=== PATIENT | male | born 1970 | race Caucasian/White ===

== ENCOUNTER 2018-09-27 18:27 | Emergency (ER) | END 2018-09-27 20:01 | disposition left against medical advice (07) ==

== ENCOUNTER 2018-10-25 10:13 | Emergency (ER) | payer MEDICAID ==
[~2018-10-25] VITALS: Wt 115.5 kg
[2018-10-25] MEDS ORDERED: HYDR25TA6 PO (12:42)
[2018-10-25] MEDS ORDERED: BENA20TA65 PO (12:42)
[2018-10-25 12:47] VITALS: BP 154/92; PULSE 72; RESP 18
--- NOTE | 2018-10-25 12:48 | ERD ---
ER Documentation Chief Complaint Chief Complaint stella leg swelling HPI 48-year-old male presents with sensation of swelling in the bilateral lower extremities. He is started after sleeping in his car. Denies any chest pain, shortness of breath patient denies any history of hypertension although pressure elevated at triage. Denies any regular primary care. ROS All systems reviewed and are negative except as per history of present illness. Medications Home Meds Active Scripts Hydrochlorothiazide* (Hydrochlorothiazide*) 25 Mg Tab, 25 MG PO DAILY, #30 TAB Prov:CHRISTIANO CHRISTIE MD 10/25/18 Benazepril Hcl* (Lotensin*) 20 Mg Tablet, 20 MG PO DAILY, #30 TAB Prov:CHRISTIANO CHRISTIE MD 10/25/18 Allergies Allergies: Coded Allergies: No Known Allergy (Unverified , 10/25/18) PMhx/Soc Medical and Surgical Hx: pt denies Medical Hx History of Surgery: Yes (right eye sx) Hx Substance Use: No Hx Tobacco Use: Yes (sometimes) Smoking Status: Current some day smoker FmHx Family History: No diabetes, No coronary disease, No other Physical Exam Vitals Vital Signs Date Temp Pulse Resp B/P (MAP) Pulse Ox O2 O2 Flow FiO2 Time Delivery Rate 10/25/18 97.7 78 20 173/102 98 10:16 (125) Physical Exam Const: No acute distress Head: Atraumatic Eyes: Normal Conjunctiva ENT: Normal External Ears, Nose and Mouth. Neck: Full range of motion. No meningismus. No JVD. Resp: Clear to auscultation bilaterally Cardio: Regular rate and rhythm, no murmurs Abd: Soft, non tender, non distended. Normal bowel sounds Skin: No petechiae or rashes Back: No midline or flank tenderness Ext: No cyanosis, possible trace edema in the ankles nonpitting. No erythema, warmth. No calf swelling or Homans sign. Neur: Awake and alert Psych: Normal Mood and Affect Result Diagram: 10/25/18 1055 10/25/18 1055 Results 24 hrs Laboratory Tests Test 10/25/18 10:55 White Blood Count 8.2 10^3/ul Red Blood Count 5.12 10^6/ul Hemoglobin 15.3 g/dl Hematocrit 45.1 % Mean Corpuscular Volume 88.1 fl Mean Corpuscular Hemoglobin 29.9 pg Mean Corpuscular Hemoglobin Concent 33.9 g/dl Red Cell Distribution Width 12.4 % Platelet Count 248 10^3/UL Mean Platelet Volume 9.6 fl Immature Granulocytes % 0.400 % Neutrophils % 55.2 % Lymphocytes % 29.1 % Monocytes % 8.6 % Eosinophils % 5.7 % Basophils % 1.0 % Nucleated Red Blood Cells % 0.0 /100WBC Immature Granulocytes # 0.030 10^3/ul Neutrophils # 4.5 10^3/ul Lymphocytes # 2.4 10^3/ul Monocytes # 0.7 10^3/ul Eosinophils # 0.5 10^3/ul Basophils # 0.1 10^3/ul Nucleated Red Blood Cells # 0.0 10^3/ul Urine Color YELLOW Urine Clarity CLEAR Urine pH 7.0 Urine Specific [place] 1.011 Urine Ketones NEGATIVE mg/dL Urine Nitrite NEGATIVE mg/dL Urine Bilirubin NEGATIVE mg/dL Urine Urobilinogen NEGATIVE mg/dL Urine Leukocyte Esterase NEGATIVE Yamil/ul Urine Hemoglobin NEGATIVE mg/dL Urine Glucose NEGATIVE mg/dL Urine Total Protein NEGATIVE mg/dl Sodium Level 142 mmol/L Potassium Level 4.2 mmol/L Chloride Level 101 mmol/L Carbon Dioxide Level 33 mmol/L Anion Gap 8 Blood Urea Nitrogen 12 mg/dl Creatinine 0.63 mg/dl Est Glomerular Filtrat Rate mL/min > 60 mL/min Glucose Level 99 mg/dl Calcium Level 8.9 mg/dl Total Bilirubin 0.6 mg/dl Direct Bilirubin 0.00 mg/dl Indirect Bilirubin 0.6 mg/dl Aspartate Amino Transf (AST/SGOT) 41 IU/L Alanine Aminotransferase (ALT/SGPT) 111 IU/L Alkaline Phosphatase 67 IU/L B-Type Natriuretic Peptide 23 PG/ML Total Protein 6.8 g/dl Albumin 4.2 g/dl Globulin 2.60 g/dl Albumin/Globulin Ratio 1.61 Procedures/MDM EKG: Rate/Rhythm: Normal Sinus Rhythm rate equals 76. QRS, ST, T-waves: No changes consistent w/ acute ischemia Impression: No evidence of ischemia or arrhythmia. Impression-borderline LVH. No acute findings otherwise on EKG. Chest X-ray 1V Interpreted by me: Soft Tissue: No acute abnormalities Bones: No acute abnormalities Mediastinum/Cardiac Silhouette/Lungs: No acute abnormalities impression-normal 1 view chest x-ray Cbs, CMP, BNP normal as well as urine. Patient presents with bilateral lower extremity swelling likely dependent edema. Current signs or symptoms to suggest CHF, DVT, cellulitis, ischemia, deficits. Initiate treatment for hypertension with Lotensin and hydrochlorothiazide and there is no signs or symptoms to suggest endorgan damage or hypertensive emergency. The patient was stable with no new complaints during the ER course. Clinically, there is no current evidence to suggest meningitis, sepsis, acute abdomen, pneumonia, stroke, acute coronary syndrome, pulmonary embolism, aortic dissection or any other emergent condition appearing to require further evaluation or hospitalization. Patient counseled regarding my diagnostic impression and care plan. Prior to discharge all questions answered. Pt agrees with treatment plan and understands strict return precautions. Pt is instructed to follow up with primary care provider within 24- 48 hours. Precautionary instructions provided including instructions to return to the ER if not improving or for any worsening or changing symptoms or concerns. Departure Diagnosis: Primary Impression: Hypertension Hypertension type: unspecified Qualified Codes: I10 - Essential (primary) hypertension Additional Impression: Swelling Condition: Stable Patient Instructions: High Blood Pressure (Hypertension), Peripheral Edema, Bilateral [facility] Usted se granados hecho un examen mdico de control que le indica que no est en melania condicin que requiera tratamiento urgente en el Departamento de Emergencia. Un estudio ms profundo y el tratamiento de hernandez condicin pueden esperar sin ningn riesgo hasta que usted sea atendida/o en el consultorio de hernandez mdico o melania c lnica. Es responsabilidad suya arreglar melania debbie para el seguimiento del rei. MANEJO DE CONDICIONES NO URGENTES EN EL FUTURO 1) Si usted tiene un mdico de atencin primaria: Usted debera llamar a hernandez mdico de atencin primaria antes de venir al departamento de emergencia. Despus de las horas de consultorio, hernandez doctor o hernandez asociado/a est disponible por telfono. El mdico o enfermero de jazzy en el servicio telefnico puede asesorarle por abhay medio para atender el problema, o rei contrario se puede programar melania debbie. 2) Si usted no tiene un mdico de atencin primaria: Llame al mdico o clnica de referencia que aparece abajo roberto las horas de consultorio para hacer melania debbie para que le vean. CLINICAS: [facility] [phone] [facility] [phone] [facility] [phone] [facility] [phone] [facility] [place] [phone] [id number] [facility] [phone] [address] Additional Instructions: Examines normal hoy.pone piernas arriba. Cheque otro vez con hernandez doctor primario en el proximo duff or regresa para mas o nueva simptomas. CHRISTIANO CHRISTIE MD Oct 25, 2018 12:48
== END 2018-10-25 12:48 | disposition home or self-care (01) ==
LOC: FTE 10:13
DX: I10 Essential (primary) hypertension (principal); F17.210 Nicotine dependence, cigarettes, uncomplicated
CPT/HCPCS: 36415; 71045; 80053; 81003; 83880; 85025; 93005; Z7502